=== PATIENT | female | born 1995 | race Two or more races ===

== ENCOUNTER → 2019-05-22 | Emergency (ER) | payer MEDICAID, OTHER ==
[~2019-05-22] VITALS: Ht 172.7 cm; Wt 59.0 kg
[2019-05-22 04:10] VITALS: BP 107/66
[2019-05-22 05:09] LABS: Urine Bacteria FEW /hpf (None Seen); Urine Blood Negative /uL (Negative); Urine Specific Gravity 1.022 (1.001-1.035); Urine Sperm PRESENT /hpf (None Seen); Urine WBC 7 /hpf (0 - 5)
== END | disposition left against medical advice (07) ==
LOC: ER 04:04
DX: M54.9 Dorsalgia, unspecified (principal); Z53.21 Procedure and treatment not carried out due to patient leaving prior to being seen by health care provider
CPT/HCPCS: 81001